=== PATIENT | male | born 1960 | race Caucasian/White ===

== ENCOUNTER 2017-01-03 12:28 | Observation (INO) | payer OTHER ==
[~2017-01-03] VITALS: Ht 167.6 cm; Wt 85.8 kg
[~2017-01-03 12:28] MED LIST: ASPIR 8181 M1 PO; LEXAPRO20 MG PO; LIPITOR20 MG PO; MOTRIN800 MG PO; NOHOMEMEDS; OMEPRAZOLE40 M1 PO; ULTRAM50 MG PO
[2017-01-03 13:31] LABS: BASOPHIL COUNT 0.1 K/uL (0-0.1); EOSINOPHIL (%) 0.2 % (0-5); HEMATOCRIT 45.7 % (38.0-50.0); IMMATURE GRANULOCYTE (%) 1.6 % (0.0-0.7); IMMATURE GRANULOCYTE COUNT 0.2 K/uL; INSTRUMENT ABS NEUTROPHIL CT 10.5 K/uL; LYMPHOCYTE COUNT 1.4 K/uL (1.0-2.8); MCH 30.6 PG (29.0-34.0); MCHC 35.4 G/DL (30.0-36.0); MCV 86.4 FL (86-99); MONOCYTE (%) 4.6 % (3-12); MONOCYTE COUNT 0.6 K/uL (0-0.8); NEUTROPHIL (%) 82.3 % (45-76); NEUTROPHIL COUNT 10.5 K/uL (1.8-6.4); PLATELET COUNT 201 K/uL (156-360); RBC DIS.WIDTH-SD 40.5 % (39-53); RED BLOOD COUNT 5.29 M/uL (4.00-5.50); WHITE BLOOD COUNT 12.7 K/uL (4.1-10.2)
[2017-01-03 13:42] LABS: D-DIMER ELISA 3.49 mg/L FEU (< 0.57)
[2017-01-03 13:49] LABS: CHLORIDE 104 mEq/L (99-109); SODIUM 134 mEq/L (136-147); TROP-I INTERPRETATION NEGATIVE; TROPONIN-I < 0.01 ng/mL (0.0-0.30)
[2017-01-03 13:51] LABS: GLUCOSE 115 mg/dL (70-99)
[2017-01-03 13:52] LABS: ANION GAP 12 MEQ/L (2-14)
[2017-01-03 13:53] LABS: TOTAL BILIRUBIN 0.4 mg/dL (0.0-1.0)
[2017-01-03 13:54] LABS: SERUM ETHYL ALCOHOL < 10 mg/dL
[2017-01-03 13:55] LABS: ALKALINE PHOSPHATASE 87 IU/L (3-129); GFR ESTIMATE (CALCULATED) > 59 mL/min/
[2017-01-03 13:56] LABS: UREA NITROGEN (BUN) 11 mg/dL (9-23)
[2017-01-03 13:58] LABS: CREATINE KINASE 147 IU/L (1-294); TOTAL CK 147 IU/L (1-294)
[2017-01-03 14:08] LABS: CK-MB 1.7 ng/mL (0.0-4.9)
[2017-01-03] MEDS ORDERED: PRILOSEC20 MG PO (15:30)
[2017-01-03 18:14] VITALS: BP 115/66
[2017-01-03 20:29] LABS: TROP-I INTERPRETATION NEGATIVE; TROPONIN-I 0.01 ng/mL (0.0-0.30)
[2017-01-03 23:44] VITALS: BP 112/70
[2017-01-04 02:20] LABS: TROP-I INTERPRETATION NEGATIVE; TROPONIN-I < 0.01 ng/mL (0.0-0.30)
[2017-01-04 04:21] VITALS: BP 102/73
[2017-01-04 07:36] LABS: ANION GAP 6 MEQ/L (2-14); CHLORIDE 106 MEQ/L (99-109); GFR ESTIMATE (CALCULATED) > 59 mL/min/; GLUCOSE 100 mg/dL (70-99); POTASSIUM 4.3 MEQ/L (3.7-5.4); SAMPLE HEMOLYSIS CHECK 0; SAMPLE ICTERIC CHECK 0; SAMPLE LIPEMIA CHECK 0; SODIUM 138 MEQ/L (136-147); UREA NITROGEN (BUN) 10 mg/dL (9-23)
[2017-01-04 07:40] VITALS: BP 132/72
[2017-01-04 08:04] LABS: HEMATOCRIT 40.6 % (38.0-50.0); MCHC 33.5 G/DL (30.0-36.0); MCV 89.6 FL (86-99); MEAN PLAT.VOLUME 10.8 uM^3 (9.0-12.4); PLATELET COUNT 164 K/uL (156-360); RBC DIS.WIDTH-CV 13.5 % (11.8-14.6); RBC DIS.WIDTH-SD 44.5 % (39-53); RED BLOOD COUNT 4.53 M/uL (4.00-5.50)
[2017-01-04 08:05] LABS: WHITE BLOOD COUNT 5.3 K/uL (4.1-10.2)
== END 2017-01-04 10:20 | disposition home or self-care (01) ==
LOC: EME → EDBD 12:28 → EDOF 15:24 → 5WEST 17:45
PROVIDERS: Emergency Medicine; Hospitalist
DX: R55 Syncope and collapse (principal); E86.0 Dehydration; E87.1 Hypo-osmolality and hyponatremia; K21.9 Gastro-esophageal reflux disease without esophagitis; I10 Essential (primary) hypertension; F17.200 Nicotine dependence, unspecified, uncomplicated
CPT/HCPCS: 70450; 71020; 71275; 72125; 80048; 80053; 81003; 82550; 82553; 84484; 85025; 85027; 85379; 93005; 93880; 99281; 99284; G0378; G0480; J1644; J7030; J7120